=== PATIENT | female | born 1965 | race Hispanic/Latino ===

== ENCOUNTER 2019-02-16 08:33 | Day surgery (SDC) | payer MEDICAID ==
[2019-02-16] VITALS (9 sets, daily range): BP systolic 80–115; BP diastolic 42–68
[~2019-02-16] VITALS: Ht 154.9 cm; Wt 79.8 kg
[2019-02-16] MEDS ORDERED: PEPCID (09:43)
[2019-02-16] MEDS ORDERED: AMIODARONE (09:43)
[2019-02-16] MEDS ORDERED: LASIX (09:43)
[2019-02-16] MEDS ORDERED: ASPI-555 PO (09:43)
[2019-02-16] MEDS ORDERED: ENTRESTO (09:43)
[2019-02-16] MEDS ORDERED: BENTYL (09:43)
[2019-02-16] MEDS ORDERED: OMEP40CA13 PO (09:43)
[2019-02-16] MEDS: SODIUM CHLORIDE 0.9% 1000ML 1,000 ML IV ONE (09:47)
[2019-02-16] MEDS ORDERED: PROPOFOL 10 MG/ML 20ML VIAL IV ONE (10:51)
--- NOTE | 2019-02-16 11:59 | NUR ---
dc pt dc home via wc, no distress noted. pt states feels "dizzy" drowsy". bp 98/59, as per Anesthesia Walker [facility] CHAIR ok to discharge home. her baseline bp 111/68, pt awake and alert, keeps burping. denies abd pain.
== END 2019-02-16 11:59 | disposition home or self-care (01) ==
LOC: ENDO 08:33
PROVIDERS: ATTEND Internal Medicine
DX: K21.9 Gastro-esophageal reflux disease without esophagitis (principal); K29.50 Unspecified chronic gastritis without bleeding; R14.2 Eructation; I11.0 Hypertensive heart disease with heart failure; I50.22 Chronic systolic (congestive) heart failure; I25.10 Atherosclerotic heart disease of native coronary artery without angina pectoris; F32.9 Major depressive disorder, single episode, unspecified; F41.9 Anxiety disorder, unspecified; Z79.899 Other long term (current) drug therapy; Z95.0 Presence of cardiac pacemaker
CPT/HCPCS: 43239; 88305; A4215; A4221; A4222; A4223; A4335; A4606; A4615; A4663; J2704; J7030

== ENCOUNTER 2020-03-23 12:43 | Observation (INO) | payer MEDICAID ==
[~2020-03-23] VITALS: Ht 152.4 cm; Wt 67.1 kg
[~2020-03-23 12:43] MED LIST: AMIODARONE; ASPI-556 PO; BENTYL; ENTRESTO; LASIX; OMEP40CA13 PO; PEPCID
[2020-03-23 13:30] LABS: BASOPHILS % (AUTO) 0.7 % (0.0-5.0); HEMATOCRIT 41.2 % (36-48); LYMPHOCYTES % (AUTO) 24.7 % (21.0-51.0); MEAN CORPUSCULAR HEMOGLOBIN 27.2 pg (27.0-33.0); MEAN CORPUSCULAR HGB CONC 30.6 g/dL (32.0-36.0); MEAN CORPUSCULAR VOLUME 88.8 fL (79-99); MONOCYTES % (AUTO) 7.5 % (3.0-13.0); PLATELET COUNT (AUTO) 136 K/uL (130-400); RED BLOOD CELL COUNT(AUTO) 4.64 MIL/uL (4.00-5.50); RED CELL DISTRIBUTION WIDTH 15.4 % (11.0-15.5); WHITE BLOOD COUNT (AUTO) 7.3 K/uL (4.8-10.8)
[2020-03-23 13:37] LABS: CREATININE 0.9 mg/dL (0.5-1.5); POTASSIUM 3.9 mmol/L (3.5-5.1)
[2020-03-23 13:42] LABS: ALBUMIN 3.8 g/dL (3.5-5.0); BILIRUBIN,TOTAL 0.6 mg/dL (0.2-1.0)
[2020-03-23 13:52] LABS: PARTIAL THROMBOPLASTIN TIME 22.4 SEC (26.3-35.5)
[2020-03-23 14:06] LABS: APPEARANCE,URINE CLEAR (CLEAR); BILIRUBIN,URINE NEGATIVE (NEGATIVE); COLOR,URINE YELLOW (YELLOW); GLUCOSE, URINE (UA) NEGATIVE (NEGATIVE); KETONES,URINE NEGATIVE (NEGATIVE); LEUKOCYTE ESTERASE ,URINE NEGATIVE (NEGATIVE); NITRATE,URINE NEGATIVE (NEGATIVE); OCCULT BLOOD,URINE NEGATIVE (NEGATIVE); PROTEIN,URINE NEGATIVE (NEGATIVE); UROBILINOGEN,URINE 0.2 mg/dL (0.2-1.0)
[2020-03-23] MEDS ORDERED: DIAZEPAM 5 MG TABLET ONE (14:51)
[2020-03-23 15:51] LABS: INR 0.93 (0.85-1.15); PROTHROMBIN TIME 10.1 SEC (9.6-11.6)
[2020-03-23] MEDS ORDERED: ONDANSETRON HCL 4 MG/2 ML VIAL IVP PRN (17:15)
[2020-03-23] MEDS ORDERED: ACETAMINOPHEN 325 MG TAB PO PRN (17:15)
[2020-03-24 03:48] LABS: BASOPHILS % (AUTO) 0.9 % (0.0-5.0); EOSINOPHILS % (AUTO) 0.7 % (0.0-8.0); HEMATOCRIT 35.9 % (36-48); LYMPHOCYTES % (AUTO) 38.3 % (21.0-51.0); MEAN CORPUSCULAR HEMOGLOBIN 27.5 pg (27.0-33.0); MEAN CORPUSCULAR HGB CONC 31.2 g/dL (32.0-36.0); MONOCYTES % (AUTO) 8.7 % (3.0-13.0); NEUTROPHILS % (AUTO) 51.3 % (40.0-77.0); PLATELET COUNT (AUTO) 322 K/uL (130-400); RED BLOOD CELL COUNT(AUTO) 4.08 MIL/uL (4.00-5.50); RED CELL DISTRIBUTION WIDTH 15.2 % (11.0-15.5); WHITE BLOOD COUNT (AUTO) 7.6 K/uL (4.8-10.8)
[2020-03-24 04:19] LABS: ALBUMIN 3.4 g/dL (3.5-5.0); BILIRUBIN,TOTAL 0.4 mg/dL (0.2-1.0); POTASSIUM 4.5 mmol/L (3.5-5.1); TOTAL PROTEIN, SERUM 7.3 g/dL (6.0-8.3)
[2020-03-24 04:57] LABS: ERYTHROCYTE SEDIMENTATION RATE 5 MM/HR (0-30)
[2020-03-24] MEDS ORDERED: FAMOTIDINE 20MG TAB 20 MG TAB ONE (08:43)
[2020-03-24] MEDS ORDERED: ENOXAPARIN SODIUM 30 MG/0.3 ML SQ ONE (08:43)
[2020-03-24] MEDS: ENOXAPARIN SODIUM 30 MG/0.3 ML SQ SCH (09:00)
[2020-03-24] MEDS ORDERED: IOHEXOL-350 75 ML VIAL IV ONE (15:23)
--- NOTE | 2020-03-24 15:57 | NUR ---
CM NOTE/IA UNSUCCESSFUL UNABLE TO MEET WITH PATIENT AT BEDSIDE, NEXT OF KIN CALLED, CLIFF ALONSO. NO ANSWER, CM TO FOLLOW UP FOR IA INFORMATION. Addendum: 03/24/20 at [address]ER RN CM Amended: Links added.
--- NOTE | 2020-03-24 16:00 | NUR ---
ADMIT: RECEIVED FROM THE ER DEPT FOR OBSERVATION. PT COMING IN WITH C/O VERTIGO, STATES ONSET 1 YR AGO. MADE COMFORTABLE IN BED, CALL [facility]WS AT HER SIDE. EXPLAINED POC AND UNDERSTANDING VERBALIZED. ORIENTATED TO ROOM AND CALL [facility] SYSTEM. INSTRUCTED TO CALL [facility]EN NEEDING TO GET UP.
[2020-03-24] MEDS ORDERED: MIDO5TAB4 PO (16:58)
[2020-03-24] MEDS ORDERED: FURO40SO4 PO (16:58)
[2020-03-24] MEDS ORDERED: SACU1TAB PO (16:58)
[2020-03-24] MEDS ORDERED: DOCU-116 PO (16:58)
--- NOTE | 2020-03-24 17:00 | NUR ---
ELIMINATION: AMB TO BR, STEADY GAIT. VOIDED LG AMTS OF URINE. STATES FEELS A LITTLE LIGHT HEADED.
[2020-03-24 17:21] VITALS: BP 104/56
--- NOTE | 2020-03-24 18:00 | NUR ---
RESULTS: DR MARTIN CALLED [facility] AND WANTING REPORT; REPORTED PT STATUS AND CT SCAN ANGIOGRAM , CXR RESULTS, NO NEW ORDERS. PT MADE AWARE DR MARTIN CALLED INQUIRING ON PT STATUS.
[2020-03-24 19:00] VITALS: BP 115/67
[2020-03-24 19:04] VITALS: BP 95/57
[2020-03-24 19:07] VITALS: BP 93/55
--- NOTE | 2020-03-24 20:00 | NUR ---
AMANDA ORDERED, BUT PATIENT REFUSED MEDICATION WHILE IN ER EARLIER TODAY. Addendum: 03/25/20 at 0030 by JOHN HERRERA RN RN Amended: Links added.
[2020-03-24] MEDS: FAMOTIDINE 20MG TAB 20 MG TAB PO SCH ×2 (21:00→21:48)
--- NOTE | 2020-03-24 23:40 | NUR ---
PATIENT STATES HAS NOT SLEPT WELL RECENTLY, REQUESTS NOT TO WAKE HER TO TAKE V/S AT 0300AM. I INFORMED OF IMPORTANCE OF TAKING V/S, BUT CAN LEAVE HER UNTIL LAST AT APPROXIMATELY 0500AM. I ALSO INFORMED HER, DUE TO SAFETY REASONS, I NEED TO CHECK UP ON HER EVERY 2HOURS TO MAKE SURE SHE IS OK. 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 SHE STATES SHE HAS BEEN AT OTHER HOSPITALS AND DOES NOT GET CHECKED ON DURING THE NIGHT. I INFORMED HER I CHECK ON ALL MY PATIENTS AT LEAST EVERY 2HOURS. I DEMONSTRATED HOW I WOULD LIGHTLY KNOCK HER DOOR. IF SLEEPING, I WOULD NOT WAKE HER UP, BUT WOULD SIMPLY CHECK TO SEE SHE IS DOING OK, NO DISTRESS AND NOT FALLEN. IF EVERYTHING OK, I WOULD CLOSE HER DOOR.
[2020-03-25] VITALS: BP 95/64
[2020-03-25 06:30] VITALS: BP 97/64
[2020-03-25 08:00] VITALS: BP 101/64
[2020-03-25] MEDS: FAMOTIDINE 20MG TAB 20 MG TAB PO SCH ×2 (09:00→09:38)
[2020-03-25] MEDS ORDERED: ASPIRIN 81 MG EC TAB PO SCH (09:00)
[2020-03-25] MEDS: ENOXAPARIN SODIUM 30 MG/0.3 ML SQ SCH (09:39)
[2020-03-25 12:00] VITALS: BP_SYST 102; BP_SYST 103; BP_SYST 122; BP_SYST 97; BP_DIAS 52; BP_DIAS 61; BP_DIAS 64; BP_DIAS 66
[2020-03-25 16:00] VITALS: BP 107/55
--- NOTE | 2020-03-25 18:35 | NUR ---
DISCHARGE INSTRUCTION PROVIDED TO PATIENT ..PATIENT VERBALIZED UNDERSTANDING
== END 2020-03-25 18:30 | disposition home or self-care (01) ==
LOC: EDH 12:43 → EDHIP 12:44 → 3CH 03-24 16:05
PROVIDERS: ADMIT Hospitalist; ATTEND Hospitalist
DX: R42 Dizziness and giddiness (principal); I11.0 Hypertensive heart disease with heart failure; I50.22 Chronic systolic (congestive) heart failure; I25.2 Old myocardial infarction; K21.9 Gastro-esophageal reflux disease without esophagitis; Z95.810 Presence of automatic (implantable) cardiac defibrillator; Z79.899 Other long term (current) drug therapy; Z88.6 Allergy status to analgesic agent
CPT/HCPCS: 36415 ×2; 70450; 70496; 70498; 71045; 80053 ×2; 81003; 82550; 84484; 85025 ×2; 85610; 85651; 85730; 93005; 96372; 97039; 97116; 97161; 99285; G0378 ×48; G8978; G8979; G8980; G8981; G8982; G8983; J1650; Q9967